=== PATIENT | male | born 1965 | race Caucasian/White ===

== ENCOUNTER 2021-10-28 22:20 | Emergency (ER) | payer BC ==
[2021-10-28] MEDS ORDERED: SODIUM CHLORIDE 0.9% 50 ML IVPB ONE (23:30)
[2021-10-28] MEDS ORDERED: CASIRIVIMAB (REGN10933) (EUA) 600 MG, IMDEVIMAB (REGN10987) (EUA) 600 MG in SODIUM CHLO... IVPB ONE (23:30)
[2021-10-28 23:45] VITALS: RESP 16; TEMP 97.8
--- NOTE | 2021-10-29 01:02 | ED ---
URI HPI - General Chief Complaint: Upper Respiratory Infection Stated Complaint: Wants COVID Test, Congestion Time Seen by Provider: 10/28/21 22:43 Source: patient Mode of arrival: ambulatory Limitations: no limitations - History of Present Illness Initial Comments: 56-year-old male patient presents to the emergency department today for evaluation of congestion, body aches, and fatigue. States he was coming home after being on the road from work, took a covid test before coming home and it was positive. He is coming in to have antibody infusion. He denies any chest pain, shortness of breath, vomiting, or diarrhea. Denies fever or chills. He is also reporting left eye redness, no pain, no itching. - Related Data Allergies Allergy/AdvReac Type Severity Reaction Status Date / Time No Known Allergies Allergy Verified 10/28/21 22:33 Review of Systems ROS Statement: Those systems with pertinent positive or pertinent negative responses have been documented in the HPI. ROS Other: All systems not noted in ROS Statement are negative. Past Medical History Past Medical History: Diabetes Mellitus History of Any Multi-Drug Resistant Organisms: None Reported Past Surgical History: No Surgical Hx Reported Past Psychological History: No Psychological Hx Reported Smoking Status: Never smoker Past Alcohol Use History: None Reported Past Drug Use History: None Reported General Exam Limitations: no limitations General appearance: alert, in no apparent distress ENT exam: Present: normal exam, normal oropharynx, mucous membranes moist Respiratory exam: Present: normal lung sounds bilaterally. Absent: respiratory distress, wheezes, rales, rhonchi, stridor Cardiovascular Exam: Present: regular rate, normal rhythm, normal heart sounds. Absent: systolic murmur, diastolic murmur, rubs, gallop, clicks Neurological exam: Present: alert, oriented X3, CN II-XII intact Psychiatric exam: Present: normal affect, normal mood Skin exam: Present: warm, dry, intact, normal color. Absent: rash Course Vital Signs 10/28/21 10/28/21 10/29/21 22:33 23:40 01:09 Temperature 98.5 F 97.8 F 97.8 F Pulse Rate 67 82 51 L Respiratory 20 16 16 Rate Blood Pressure 155/82 120/79 134/83 O2 Sat by Pulse 97 97 97 Oximetry Medical Decision Making - Medical Decision Making 56 year-old male patient presents for evaluation of upper respiratory congestion and positive home covid test. Physical examination is unremarkable. He did meet criteria to receive monoclonal antibody infusion. Tolerated the infusion well. He is discharged follow up with his primary care physician for recheck in 1-2 days. Return parameters are discussed in detail. He verbalizes understanding and agrees with this plan. My attending is Dr. Sierra. - Lab Data Lab Results 10/28/21 Range/Units 22:38 Coronavirus (PCR) Detected A (Not Detectd) Disposition Clinical Impression: COVID-19 Disposition: HOME SELF-CARE Condition: Good Instructions (If sedation given, give patient instructions): Coronavirus Disease 2019 (COVID-19) Additional Instructions: Tips to help you feel better: -Maintain adequate fluid intake - especially water. -Rest, you are healing your body will require extra sleep. -Eat even if you do not feel like it - broth, jello, toast are fine if you cannot eat full meals. -Take tylenol and motrin alternating (if you have no allergies or have not been instructed to avoid these medications) to help with body aches and fevers. -Obtain over the counter vitamin C, zinc, and vitamin D3. -Take medications as prescribed. Follow-up with your primary care physician for recheck in 1-2 days. Return for any new, worsening, or concerning symptoms. Is patient prescribed a controlled substance at d/c from ED?: No Referrals: Nonstaff,Physician [Primary Care Provider] - 1-2 days Time of Disposition: 01:02
[2021-10-29 01:10] VITALS: BP 134/83; PULSE 51
== END 2021-10-29 01:13 | disposition home or self-care (01) ==
LOC: EC 22:20
DX: U07.1 COVID-19 (principal); E11.9 Type 2 diabetes mellitus without complications
CPT/HCPCS: 99283; 87635; Q0244